=== PATIENT | female | born 1990 | race Caucasian/White ===

== ENCOUNTER 2023-03-26 18:23 | Emergency (ER) | payer OTHER, SELFPAY ==
[2023-03-26 18:45] VITALS: BP 149/79; PULSE 64; RESP 18; TEMP 36.7; O2SAT 100; BMI 33.5
--- NOTE | 2023-03-26 18:46 | ED_ITS ---
HPI - General Adult General Chief complaint: Skin/Abscess/Foreign Body Stated complaint: rash in private area Time Seen by Provider: 03/26/23 23:29 Source: patient, RN notes reviewed, old records reviewed and air pollution compliance inspector Mode of arrival: ambulatory Limitations: language barrier History of Present Illness HPI narrative: 32-year-old female presents for evaluation of a rash in her vaginal and rectal area Patient reports the rash 1st started 3 days ago for She has not looked at the rash but feels a very burning pain and ?a bunch of bumps. Denies any history of genital herpes Denies any fevers, chills No other complaints or concerns at this time Related Data Previous Rx's Medication Instructions Recorded lidocaine 5 % topical cream 1 appl topical TID PRN pain #15 03/27/23 grams prednisone 20 mg tablet 40 mg PO DAILY #10 tabs 03/27/23 valacyclovir 1 gram tablet 1,000 mg PO TID #21 tabs 03/27/23 (Valtrex) Allergies Allergy/AdvReac Type Severity Reaction Status Date / Time aspirin [ASA] AdvReac Rash Verified 03/26/23 18:48 Review of Systems Integumentary/Breasts: Skin/Breast: Reports rash PMFSH Social History Social History Advance Directives: No Advance Directives Information Provided: Yes Physical Exam ED Vital Signs: Vital Signs - 24 hr 03/26/23 18:45 Temperature 98.1 F Pulse Rate 64 Respiratory Rate 18 Blood Pressure 149/79 H Pulse Oximetry 100 Oxygen Delivery Method Room Air BMI result Body Mass Index 33.5 Const General: healthy appearing, comfortable, no acute distress, alert and awake Nutritional Appearance: well nourished Orientation/consciousness: patient oriented x3 Resp Effort & Inspection: normal respiratory effort, no audible wheezes and not labored Skin Other: Patient has a vesicular rash that starts in the perivaginal region extends to the perineum towards the inferior aspect of the rectum. No significant areas of beefy red erythema, edema, fluctuance General skin exam: elasticity normal Neuro General: patient oriented x3 Cranial nerves: Yes Bilaterally intact EOM present Cognition (Neuro): normal cognition Extrem Other: Moving all extremities well without any obvious deformities Course Course Course Narrative: RME performed by Hodan Trent PA-C. Patient is a 32 year old assigned female at presenting to the emergency department with rectal irritation. Patient placed back in the waiting room pending room availability. Medical Decision Making Medical Decision Making MDM Narrative: Patient's rash is clinically most consistent with a herpes simplex virus. A swab was sent to evaluate for herpes simplex. Will treat with valacyclovir, prednisone and topical lidocaine. The rash is not consistent with cellulitis versus perirectal abscess. Differential Diagnosis Differential Diagnoses: The differential diagnosis associated with the presentation includes Acute rash Vesicular rash Herpes simplex virus Dermatitis Cellulitis Discharge Plan Discharge Clinical Impression: Vesicular rash Patient Disposition: Home, Self-Care Instructions: Genital Herpes Simplex (ED) Additional Instructions: Your rash is most consistent with herpes simplex virus. Take the valacyclovir 3 times a day for 1 week Take prednisone 40 mg daily for the next 5 days You may try using the lidocaine cream as needed. This will likely cause increased burning for a short while before improving her pain Prescriptions: New valacyclovir [Valtrex] 1 gram tablet 1,000 mg PO TID Qty: 21 0RF lidocaine 5 % cream 1 appl topical TID PRN (Reason: pain) Qty: 15 0RF prednisone 20 mg tablet 40 mg PO DAILY Qty: 10 0RF
--- OUTSIDE RECORDS SUMMARY | 2023-03-27 00:09 | XMS_ITS | Continuity of Care Document ---
Author Name Unknown Organization [facility] ter Address [address] [place] [address]- Care Team Providers Care Corporate Accounting Manager Name Role Phone Christopher RUIZ, Kathleen Primary Care Physician [phone] [facility] Date(s): 12/06/20 - 12/06/[address] [address] Discharge Disposition: A-D/C Home Attending Physician: Sabine Deutsch MD Admitting Physician: Sabine Deutsch MD Referring Physician: Sabine Deutsch MD Allergies, Adverse Reactions, Alerts Substance Reaction Severity Status aspirin hives Persistent Moderate Active Immunizations Given and Recorded Vaccine Date Status Refusal Reason influenza virus vaccine, inactivated 10/11/20 Give n influenza virus vaccine, inactivated 12/04/19 Give n influenza virus vaccine, inactivated 12/30/17 Give n tetanus/diphtheria/pertussis, acel(Tdap) 12/30/17 Given Medications bacitracin topical 500 u/gm ointment 1 application, Topically, 2 times a day, # 15 Gm, 0 Refills, Acute 12/15/20 8:13:00 EST, 12/06/20 8:12:00 EST, [facility] Partial fill upon patient request if the prescription is for a schedule II opioid drug., 1 application... Start Date: 12/06/20 Stop Date: 12/15/20 Status: Ordered FLUoxetine 20 mg oral capsule Refills 0, Maintenance, 10/11/20 11:21:00 EST, Partial fill upon patient request if the prescription is for a schedule II opioid drug. Start Date: 10/11/20 Status: Ordered Problem List Condition Effective Dates Status Health Status Inform ant Anxiety(Confirmed) Active Depression(Confirmed) Active Vital Signs Most recent to oldest [Reference Range]: 1 2 3 Height 162.56 cm (12/06/20 7:08 AM) 162.56 cm (11/25/20 5:25 PM) Weight 96 kg (12/06/20 7:08 AM) 97.27 kg (11/25/20 5:25 PM) Oxygen Saturation [94-100 %] 99 % (12/06/20 8:30 AM) 98 % (12/06/20 8:15 AM) 92 % *L* (12/06/20 8:00 AM) Pulse Rate [55-90 bpm] 55 bpm (12/06/20 7:08 AM) Body Mass Index [18.5-24.99] 36.33 *>HHI* (12/06/20 7:08 AM) 36.81 *>HHI* (11/25/20 5:25 PM) Blood Pressure [90-138/55-84 mm Hg] 130/92mm Hg (12/06/20 8:30 AM) 118/85mm Hg (12/06/20 8:15 AM) 106/47mm Hg (12/06/20 8:00 AM) Respiratory Rate [16-30 br/min] 14 br/min *L* (12/06/20 8:30 AM) 19 br/min (12/06/20 8:15 AM) 23 br/min (12/06/20 8:00 AM) Temperature [96.8-100.4 DegF] 97.3 DegF (12/06/20 9:00 AM) 96.9 DegF (12/06/20 8:00 AM) 98.0 DegF (12/06/20 7:08 AM) Mode of Delivery (Oxygen) Room air (12/06/20 8:30 AM) Room air (12/06/20 8:15 AM) Room air (12/06/20 8:00 AM) Blood pressure sites Arm, right (12/06/20 8:00 AM) Arm, right (12/06/20 7:08 AM) Temperature Route Temporal (12/06/20 9:00 AM) Temporal (12/06/20 8:00 AM) Temporal (12/06/20 7:08 AM) Dry Weight 96 kg (12/06/20 7:08 AM) 97.27 kg (11/25/20 5:25 PM) Weight Obtained Via Standing scale (12/06/20 7:08 AM) Patient/family stated (11/25/20 5:25 PM) Dry Weight Obtained Via Standing scale (12/06/20 7:08 AM) Patient/family stated (11/25/20 5:25 PM) Social History Social History Type Response Smoking Status Never (less than 100 in lifetime) entered on: 10/11/20 Sex
--- OUTSIDE RECORDS SUMMARY | 2023-03-27 00:09 | XMS_ITS | Continuity of Care Document ---
Author Name Unknown Organization [facility] Address [address] [place] [address] [address] [place] [address]- Care Team Providers Care Kapok And Cotton Machine Operator Name Role Phone Christopher RUIZ, Kathleen Primary Care Physician [phone] Encounter [facility] Date(s): 12/16/20 - 01/15/21 [facility] [address] [place] [address]- Attending Physician: Hailey Brewer Admitting Physician: AdmtrHailey Referring Physician: Admtr, Ar8 Allergies, Adverse Reactions, Alerts Substance Reaction Severity Status aspirin hives Persistent Moderate Active Immunizations Given and Recorded Vaccine Date Status Refusal Reason influenza virus vaccine, inactivated 10/11/20 Give n influenza virus vaccine, inactivated 12/04/19 Give n influenza virus vaccine, inactivated 12/30/17 Give n tetanus/diphtheria/pertussis, acel(Tdap) 12/30/17 Given Medications FLUoxetine 20 mg oral capsule Refills 0, Maintenance, 10/11/20 11:21:00 EST, Partial fill upon patient request if the prescription is for a schedule II opioid drug. Start Date: 10/11/20 Status: Ordered Problem List Condition Effective Dates Status Health Status Inform ant Anxiety(Confirmed) Active Depression(Confirmed) Active Social History Social History Type Response Smoking Status Never (less than 100 in lifetime) entered on: 10/11/20 Sex
--- OUTSIDE RECORDS SUMMARY | 2023-03-27 00:09 | XMS_ITS | Continuity of Care Document ---
Author Name Unknown Organization [facility] Address [address] [place] [address]- Care Team Providers Care Website Project Manager Name Role Phone Jeff RUIZ, Roseann Park Primary Care Physician Encounter [facility] Date(s): 08/17/22 - 10/10/[address] [address]- Attending Physician: Not on Staff, Attending MD Referring Physician: Fallon Adrian MD Allergies, Adverse Reactions, Alerts Substance Reaction Severity Status aspirin hives Persistent Moderate Active Immunizations Given and Recorded Vaccine Date Status Refusal Reason SARS-CoV-2 (COVID-19) mRNA BNT-162b2 vac 10/04/21 Recorded SARS-CoV-2 (COVID-19) mRNA BNT-162b2 vac 02/15/21 Recorded SARS-CoV-2 (COVID-19) mRNA BNT-162b2 vac 01/23/21 Recorded influenza virus vaccine, inactivated 10/11/20 Give n influenza virus vaccine, inactivated 12/04/19 Give n influenza virus vaccine, inactivated 12/30/17 Give n tetanus/diphtheria/pertussis, acel(Tdap) 12/30/17 Given Medications ferrous sulfate 160 mg oral tablet, extended release 1 tablet = 160 mg, By Mouth, Every other day, # 30 tablet, 0 Refills, Maintenance, 08/07/22 11:09:00 EDT, ER Tablet, [id number], Partial fill upon patient request if the prescription is for aschedule II opioid drug., 163, cm, 08/07/22 7:44:00... Start Date: 08/07/22 Status: Ordered Liletta 52 mg intrauterine device See Instructions, 1 device to be delivered to [address] [place] [address]. Tel [phone]., # 1 each, 0 Refills, Maintenance, 08/24/22 12:20:00 EDT, [facility], Partial fill upon patient request if the prescription is for a... Start Date: 08/24/22 Status: Ordered medroxyPROGESTERone 10 mg oral tablet 10 mg, 1, tablet, By Mouth, Daily, # 30 tablet, Refills 0, Tot. Refills 0, Maintenance, 08/07/22 11:01:00 EDT, Route to Pharmacy Electronically, [facility]/pharmacy #[id number], Partial fill upon patient request if the prescription is for a schedule II opioid drug... Start Date: 08/07/22 Status: Ordered Provera 10 mg oral tablet 10 mg, 1, tablet, By Mouth, 3 times a day, # 60 tablet, Refills 0, Tot. Refills 0, Maintenance, 08/24/22 12:17:00 EDT, Route to Pharmacy Electronically, [facility]/pharmacy #[id number], Partial fill upon patient request if the prescription is for a schedule II opi... Start Date: 08/24/22 Stop Date: 09/13/22 Status: Ordered Problem List Condition Confirmation Course Effective Dates Status Health St atus Informant Anxiety Confirmed Active Depression Confirmed Active Obese class I Confirmed Active Social History Social History Type Response Smoking Status Never (less than 100 in lifetime) entered on: 10/11/20 Sex Patient Care team information Care Team Personnel Name: Roseann Aguilar MD Position: S Resident Member Role: PCP Address: Address: [address] [place] [address]- Care Team Related Persons Name: GILBERT CASTELLANO Address: home [address] [place] [address] Name: FABRICIO GRACIA Address: home [address] [place] [address]
--- OUTSIDE RECORDS SUMMARY | 2023-03-27 00:09 | XMS_ITS | Continuity of Care Document ---
Author Name Unknown Organization [facility] Address [address] [place] [address]- Care Team Providers Care Bottom Presser Name Role Phone Christopher RUIZ, Kathleen Primary Care Physician [phone] Encounter [facility] ACCT R [id number] Date(s): 10/11/20 - 11/10/[address] [address]- Attending Physician: Hailey Brewer Admitting Physician: AdmtrHailey [...]
--- OUTSIDE RECORDS SUMMARY | 2023-03-27 00:09 | XMS_ITS | Continuity of Care Document ---
Author Name Unknown Organization [facility] Address Unknown Care Team Providers Care Air Force Pilot Name Role Phone Jeff RUIZ, Roseann Park Primary Care Physician Encounter [facility] Date(s): 07/03/21 - 08/02/21 [facility] Allergies, Adverse Reactions, Alerts Substance Reaction Severity [...]
--- OUTSIDE RECORDS SUMMARY | 2023-03-27 00:09 | XMS_ITS | Continuity of Care Document ---
Author Name Unknown Organization [facility] Address [address] [place] [address]- Care Team Providers Care Reporting Lead Name Role Phone Jeff RUIZ, Roseann Park Primary Care Physician [place] [facility] Date(s): 08/18/22 - 09/17/[address] [address]- Allergies, Adverse Reactions, Alerts Substance Reaction Severity [...] Maintenance, 08/07/22 11:09:00 EDT, ER Tablet, [id number], Partial fill upon patient request if the prescription is for aschedule II opioid drug., 163, cm, 08/07/22 7:44:00... Start Date: 08/07/22 Status: Ordered Liletta 52 mg intrauterine device See Instructions, 1 device to be delivered to [address] [place] [address]. Tel [phone]., # 1 each, 0 Refills, Maintenance, 08/24/22 12:20:00 EDT, [facility], Partial fill upon patient request if the prescription is for a... Start Date: 08/24/22 Status: Ordered medroxyPROGESTERone 10 mg oral tablet 10 mg, 1, tablet, By Mouth, Daily, # 30 tablet, Refills 0, Tot. Refills 0, Maintenance, 08/07/22 11:01:00 EDT, Route to Pharmacy Electronically, [facility]/pharmacy #[id number], Partial fill upon patient request if the prescription is for a schedule II opioid drug... Start Date: 08/07/22 Status: Ordered Provera 10 mg oral tablet 10 mg, 1, tablet, By Mouth, 3 times a day, # 60 tablet, Refills 0, Tot. Refills 0, Maintenance, 08/24/22 12:17:00 EDT, Route to Pharmacy Electronically, [facility]/pharmacy #[id number], Partial fill upon patient request [...] Team Personnel Name: Roseann Aguilar MD Position: [facility] Resident Member Role: PCP Address: Address: [address] [place] [address]- Care Team Related Persons Name: GILBERT CASTELLANO Address: home [address] [place] [address] Name: FABRICIO GRACIA Address: home [address] [place] [address]
--- OUTSIDE RECORDS SUMMARY | 2023-03-27 00:09 | XMS_ITS | Continuity of Care Document ---
Author Name Unknown Organization [facility] Address [address] [place] [address]- Care Team Providers Care Sales Agent Financial Report Service Name Role Phone Jeff RUIZ, Roseann Park Primary Care Physician [place] [facility] [place] 09/11/22 - 10/25/[address] [address]- Attending Physician: Not on Staff, Attending MD Allergies, Adverse Reactions, Alerts Substance Reaction [...] Maintenance, 08/07/22 11:09:00 EDT, ER Tablet, [id number], Partial fill upon patient request if the prescription is for aschedule II opioid drug., 163, cm, 08/07/22 7:44:00... Start Date: 08/07/22 Status: Ordered Liletta 52 mg intrauterine device See Instructions, 1 device to be delivered to [address] [place] [address]. Tel [phone]., # 1 each, 0 Refills, Maintenance, 08/24/22 12:20:00 EDT, [facility], Partial fill upon patient request if the prescription is for a... Start Date: 08/24/22 Status: Ordered medroxyPROGESTERone 10 mg oral tablet 10 mg, 1, tablet, By Mouth, Daily, # 30 tablet, Refills 0, Tot. Refills 0, Maintenance, 08/07/22 11:01:00 EDT, Route to Pharmacy Electronically, [facility]/pharmacy #[id number], Partial fill upon patient request if the prescription is for a schedule II opioid drug... Start Date: 08/07/22 Status: Ordered Provera 10 mg oral tablet 10 mg, 1, tablet, By Mouth, 3 times a day, # 60 tablet, Refills 0, Tot. Refills 0, Maintenance, 08/24/22 12:17:00 EDT, Route to Pharmacy Electronically, [id number], Partial fill upon patient request if [...] S Resident Member Role: PCP Address: Address: [address] [place] [address]- Care Team Related Persons Name: GILBERT CASTELLANO Address: home [address] [place] [address] Name: FABRICIO GRACIA Address: [address] [place] [address]
--- OUTSIDE RECORDS SUMMARY | 2023-03-27 00:09 | XMS_ITS | Continuity of Care Document ---
Author Name Unknown Organization [facility] Address [address] [place] [address]- Care Team Providers Care Tool And Gauge Inspector Name Role Phone Charissa Gill MD Primary Care Physician Encounter [facility] Date(s): 12/04/19 - 12/14/19 [facility] [address] [place] [address]- [place] Attending Physician: Hailey Brewer Admitting Physician: AdmtrHailey Referring Physician: Admtr, ArAgata Allergies, Adverse Reactions, Alerts Substance Reaction Severity Status aspirin hives Persistent Moderate Active Immunizations Given and Recorded Vaccine Date Status Refusal Reason influenza virus vaccine, inactivated 12/04/19 Give n influenza virus vaccine, inactivated 12/30/17 Give n tetanus/diphtheria/pertussis, acel(Tdap) 12/30/17 Given Medications FLUoxetine 10 mg oral capsule 10 mg, 1, capsule, By Mouth, Daily, # 90 capsule, Refills 3, Tot. Refills 3, Maintenance, 12/04/19 18:17:00 EST, Route to Pharmacy Electronically, [facility]/pharmacy #[id number], 163, cm, 12/04/19 17:59:00 EST, Height Start Date: 12/04/19 Status: Ordered Problem List Condition Effective Dates Status Health Status Inform ant Depression(Confirmed) Active Social History Social History Type Response Smoking Status Never smoker entered on: 10/13/17 Sex
--- OUTSIDE RECORDS SUMMARY | 2023-03-27 00:09 | XMS_ITS | Continuity of Care Document ---
Author Name Unknown Organization [facility] Address [address] [place] [address]- Care Team Providers Care Blending Tank Tender Name Role Phone Jeff RUIZ, Roseann Park Primary Care Physician Encounter [facility] Date(s): 08/06/22 - 09/05/22 [facility] [address] [place], [place] [address] Allergies, Adverse Reactions, Alerts Substance Reaction Severity [...] Maintenance, 08/07/22 11:09:00 EDT, ER Tablet, [id number], Partial fill upon patient request if the prescription is for aschedule II opioid drug., 163, cm, 08/07/22 7:44:00... Start Date: 08/07/22 Status: Ordered Liletta 52 mg intrauterine device See Instructions, 1 device to be delivered to [address] [place] [address]. Tel [phone]., # 1 each, 0 Refills, Maintenance, 08/24/22 12:20:00 EDT, [facility], Partial fill upon patient request if the prescription is for a... Start Date: 08/24/22 Status: Ordered medroxyPROGESTERone 10 mg oral tablet 10 mg, 1, tablet, By Mouth, Daily, # 30 tablet, Refills 0, Tot. Refills 0, Maintenance, 08/07/22 11:01:00 EDT, Route to Pharmacy Electronically, [facility]/pharmacy #[id number], Partial fill upon patient request if the prescription is for a schedule II opioid drug... Start Date: 08/07/22 Status: Ordered Provera 10 mg oral tablet 10 mg, 1, tablet, By Mouth, 3 times a day, # 60 tablet, Refills 0, Tot. Refills 0, Maintenance, 08/24/22 12:17:00 EDT, Route to Pharmacy Electronically, [facility]/pharmacy #[id number], Partial fill upon patient [...] S Resident Member Role: PCP Address: Address: [address] [place] [address]- Care Team Related Persons Name: GILBERT CASTELLANO Address: [address] [place] [address] Name: FABRICIO GRACIA Address: [address] [place] [address]
--- OUTSIDE RECORDS SUMMARY | 2023-03-27 00:09 | XMS_ITS | Continuity of Care Document ---
Author Name Unknown Organization [facility] Address [address] [place] [address]- Care Team Providers Care Project Scheduler Name Role Phone Jeff RUIZ, Roseann Park Primary Care Physician Encounter [facility] Date(s): 08/26/22 - 09/25/[address] [address]- Allergies, Adverse Reactions, Alerts Substance Reaction Severity [...] Maintenance, 08/07/22 11:09:00 EDT, ER Tablet, [id number], Partial fill upon patient request if the prescription is for aschedule II opioid drug., 163, cm, 08/07/22 7:44:00... Start Date: 08/07/22 Status: Ordered Liletta 52 mg intrauterine device See Instructions, 1 device to be delivered to [address] [place] [address]. Tel [phone]., # 1 each, 0 Refills, Maintenance, 08/24/22 12:20:00 EDT, [facility], Partial fill upon patient request if the prescription is for a... Start Date: 08/24/22 Status: Ordered medroxyPROGESTERone 10 mg oral tablet 10 mg, 1, tablet, By Mouth, Daily, # 30 tablet, Refills 0, Tot. Refills 0, Maintenance, 08/07/22 11:01:00 EDT, Route to Pharmacy Electronically, [id number], [...] S Resident Member Role: PCP Address: Address: [address] [place] [address]- Care Team Related Persons Name: GILBERT CASTELLANO Address: home [address] [place] [address] Name: FABRICIO GRACIA Address: home [address] [place] [address]
--- OUTSIDE RECORDS SUMMARY | 2023-03-27 00:09 | XMS_ITS | Continuity of Care Document ---
Author Name Unknown Organization [facility] Address [address] [place] [address]- Care Team Providers Care Longwall Machine Operator Helper Name Role Phone Jeff RUIZ, Roseann Park Primary Care Physician Encounter [facility] ACCT R [id number] Date(s): 09/25/22 - 10/25/[address] [address]- Attending Physician: Admtr, Rosalio8 Admitting Physician: Admtr, Ar8 Referring Physician: Admtr, Ar8 Allergies, Adverse Reactions, [...] Maintenance, 08/07/22 11:09:00 EDT, ER Tablet, [id number], Partial fill upon patient request if the prescription is for aschedule II opioid drug., 163, cm, 08/07/22 7:44:00... Start Date: 08/07/22 Status: Ordered Liletta 52 mg intrauterine device See Instructions, 1 device to be delivered to [address] [place] [address] [facility] [address]. Tel [phone]., # 1 each, 0 Refills, Maintenance, 08/24/22 12:20:00 EDT, [facility], Partial fill upon patient request if the prescription is for a... Start Date: 08/24/22 Status: Ordered medroxyPROGESTERone 10 mg oral tablet 10 mg, 1, tablet, By Mouth, Daily, # 30 tablet, Refills 0, Tot. Refills 0, Maintenance, 08/07/22 11:01:00 EDT, Route to Pharmacy Electronically, [facility]/pharmacy #[id number], Partial fill upon patient request if the prescription is for a schedule II opioid drug... Start Date: 08/07/22 Status: Ordered Provera 10 mg oral tablet 10 mg, 1, tablet, By Mouth, 3 times a day, # 60 tablet, Refills 0, Tot. Refills 0, Maintenance, 08/24/22 12:17:00 EDT, Route to Pharmacy Electronically, [facility]/pharmacy #[id number], Partial fill upon patient request if [...] S Resident Member Role: PCP Address: Address: [address] [place] [address]- Care Team Related Persons Name: GILBERT CASTELLANO Address: home [address] [place] [address] Name: FABRICIO GRACIA Address: home [address] [place] [address]
--- OUTSIDE RECORDS SUMMARY | 2023-03-27 00:09 | XMS_ITS | Continuity of Care Document ---
Author Name Unknown Organization [facility] Address [address] [place] [address]- Care Team Providers Care Interventional Physician Name Role Phone Jeff RUIZ, [place] Primary Care Physician Encounter [facility] [place] [facility] [id number] Date(s): 08/07/22 - 09/20/[address] [address]- Attending Physician: Leidy Vega MD Admitting Physician: Leidy Vega MD Allergies, Adverse Reactions, Alerts Substance Reaction [...] Refills, Maintenance, 08/07/22 11:09:00 EDT, ER Tablet, [facility]/pharmacy #[id number], Partial fill upon patient request if the prescription is for aschedule II opioid drug., 163, cm, 08/07/22 7:44:00... Start Date: 08/07/22 Status: Ordered Liletta 52 mg intrauterine device See Instructions, 1 device to be delivered to [address] [place] [address]. Tel [phone]., # 1 each, 0 Refills, Maintenance, 08/24/22 12:20:00 EDT, [facility], Partial fill upon patient request if the prescription is for a... Start Date: 08/24/22 Status: Ordered medroxyPROGESTERone 10 mg oral tablet 10 mg, 1, tablet, By Mouth, Daily, # 30 tablet, Refills 0, Tot. Refills 0, Maintenance, 08/07/22 11:01:00 EDT, Route to Pharmacy Electronically, [facility]/pharmacy #[id number], Partial fill upon patient request if the prescription is for a schedule II opioid drug... Start Date: 08/07/22 Status: Ordered Provera 10 mg oral tablet 10 mg, 1, tablet, By Mouth, 3 times a day, # 60 tablet, Refills 0, Tot. Refills 0, Maintenance, 08/24/22 12:17:00 EDT, Route to Pharmacy Electronically, [facility]/pharmacy #[id number], Partial fill upon patient request if [...] S Resident Member Role: PCP Address: Address: [address] [place] [address]- Care Team Related Persons Name: GILBERT CASTELLANO Address: home [address] [place] [address] Name: FABRICIO GRACIA Address: home [address] [place] [address]
--- OUTSIDE RECORDS SUMMARY | 2023-03-27 00:09 | XMS_ITS | Continuity of Care Document ---
Author Name Unknown Organization [facility] Address [address] [place] [address] [address] [place] [address]- Care Team Providers Care Registered Nurse First Assistant Name Role Phone Christopher RUIZ, Kathleen Primary Care Physician Encounter [facility] [place] Date(s): 11/12/20 - 11/19/[address] [place], [place] [address] Attending Physician: Sabine Deutsch MD Referring Physician: Kathleen White MD Allergies, Adverse Reactions, Alerts Substance Reaction [...] Most recent to oldest [Reference Range]: 1 Height 162.2 cm (11/12/20 8:52 AM) Weight 97.1 kg (11/12/20 8:52 AM) Pulse Rate [55-90 bpm] 79 bpm (11/12/20 8:52 AM) Body Mass Index [18.5-24.99] 36.91 *>HHI* (11/12/20 8:52 AM) Blood Pressure [90-138/55-84 mm Hg] 121/ 78mm Hg (11/12/20 8:52 AM) Respiratory Rate [16-30 br/min] 16 br/mi n (11/12/20 8:52 AM) Temperature [96.8-100.4 DegF] 97.4 DegF (11/12/20 8:52 AM) Blood pressure sites Arm, right (11/12/20 8:52 AM) Temperature Route Temporal (11/12/20 8:52 AM) Weight Obtained Via Standing scale (11/12/20 8:52 AM) Social History Social History Type Response Smoking Status Never (less than 100 in lifetime) entered on: 10/11/20 Sex
--- OUTSIDE RECORDS SUMMARY | 2023-03-27 00:09 | XMS_ITS | Continuity of Care Document ---
Author Name Unknown Organization [facility] Address [address] [place] [address]- Care Team Providers Care Manager Home Improvement Name Role Phone Jeff RUIZ, Roseann Park Primary Care Physician Encounter [facility] Date(s): 07/24/21 - 08/23/[address] [address]- Allergies, Adverse Reactions, Alerts Substance Reaction Severity [...]
--- OUTSIDE RECORDS SUMMARY | 2023-03-27 00:09 | XMS_ITS | Continuity of Care Document ---
Author Name Unknown Organization [facility] Address [address] [place] [address]- Care Team Providers Care Equipment Planner Name Role Phone Jeff RUIZ, Roseann Park Primary Care Physician Encounter [facility] Date(s): 08/28/22 - 09/27/[address] [address]- Allergies, Adverse Reactions, Alerts Substance Reaction Severity [...] Maintenance, 08/07/22 11:09:00 EDT, ER Tablet, [id number], Partial fill upon patient request if the prescription is for aschedule II opioid drug., 163, cm, 08/07/22 7:44:00... Start Date: 08/07/22 Status: Ordered Liletta 52 mg intrauterine device See Instructions, 1 device to be delivered to [address] [place] [address]. Tel [phone]., # 1 each, 0 Refills, Maintenance, 08/24/22 12:20:00 EDT, [facility], Partial fill upon patient [...] S Resident Member Role: PCP Address: Address: [address] [place] [address]- Care Team Related Persons Name: GILBERT CASTELLANO Address: home [address] [place] [address] Name: FABRICIO GRACIA Address: home [address] [place] [address]
--- OUTSIDE RECORDS SUMMARY | 2023-03-27 00:09 | XMS_ITS | Continuity of Care Document ---
Author Name Unknown Organization [facility] Address [address] [place] [address] [address] [place] [address]- Care Team Providers Care Backup Sawyer Name Role Phone Christopher RUIZ, Kathleen Primary Care Physician [phone] Encounter [facility] [place] Date(s): 12/16/20 - 12/23/20 [facility] [address] [place] [address]- Attending Physician: Sabine Deutsch MD Referring Physician: [...] Most recent to oldest [Reference Range]: 1 Pulse Rate [55-90 bpm] 66 bpm (12/16/20 2:16 PM) Blood Pressure [90-138/55-84 mm Hg] 134/ 81mm Hg (12/16/20 2:16 PM) Temperature [96.8-100.4 DegF] 98.1 DegF (12/16/20 2:16 PM) Blood pressure sites Arm, right (12/16/20 2:16 PM) Temperature Route Temporal (12/16/20 2:16 PM) Social History Social History Type Response Smoking Status Never (less than 100 in lifetime) entered on: 10/11/20 Sex
--- OUTSIDE RECORDS SUMMARY | 2023-03-27 00:09 | XMS_ITS | Continuity of Care Document ---
Author Name Unknown Organization [facility] Address [address] [place] [address]- Care Team Providers Care Portable Power Tool Repairer Name Role Phone Jeff RUIZ, Roseann Park Primary Care Physician Encounter [facility] Date(s): 08/17/22 - 10/01/[address] [address]- Attending Physician: Not on Staff, Attending MD [...] Maintenance, 08/07/22 11:09:00 EDT, ER Tablet, [id number], Partial fill upon patient request if the prescription is for aschedule II opioid drug., 163, cm, 08/07/22 7:44:00... Start Date: 08/07/22 Status: Ordered Liletta 52 mg intrauterine device See Instructions, 1 device to be delivered to [address] [place] [address]. Tel [phone]., # 1 each, 0 Refills, Maintenance, 08/24/22 12:20:00 EDT, [facility], Partial fill upon patient [...] S Resident Member Role: PCP Address: Address: [address] [place] [address]- Care Team Related Persons Name: GILBERT CASTELLANO Address: home [address] [place] [address] Name: FABRICIO GRACIA Address: [address] [place] [address]
--- OUTSIDE RECORDS SUMMARY | 2023-03-27 00:10 | XMS_ITS | Continuity of Care Document ---
Author Name Unknown Organization [facility] Address [address] [place] [address]- Care Team Providers Care Penetration Tester Name Role Phone Jeff RUIZ, Roseann Park Primary Care Physician Encounter [facility] [place] Date(s): 07/31/22 - 08/30/[address] [address]- Allergies, Adverse Reactions, Alerts Substance Reaction Severity [...] Maintenance, 08/07/22 11:09:00 EDT, ER Tablet, [id number], Partial fill upon patient request if the prescription is for aschedule II opioid drug., 163, cm, 08/07/22 7:44:00... Start Date: 08/07/22 Status: Ordered Liletta 52 mg intrauterine device See Instructions, 1 device to be delivered to [address] [place] [address]. Tel [phone]., # 1 each, 0 Refills, Maintenance, 08/24/22 12:20:00 EDT, [facility], Partial fill upon patient request if the prescription is for a... Start Date: 08/24/22 Status: Ordered medroxyPROGESTERone 10 mg oral tablet 10 mg, 1, tablet, By Mouth, Daily, # 30 tablet, Refills 0, Tot. Refills 0, Maintenance, 08/07/22 11:01:00 EDT, Route to Pharmacy Electronically, [facility]pharmacy #[id number], Partial fill upon patient request if the prescription is for a schedule II opioid drug... Start Date: 08/07/22 Status: Ordered Provera 10 mg oral tablet 10 mg, 1, tablet, By Mouth, 3 times a day, # 60 tablet, Refills 0, Tot. Refills 0, Maintenance, 08/24/22 12:17:00 EDT, Route to Pharmacy Electronically, [facility]/pharmacy #[id number], Partial fill upon patient request if the prescription is for a schedule II opi... Start Date: 08/24/22 Stop Date: 09/13/22 Status: Ordered Problem List Condition Confirmation Course Effective Dates Status [facility] Informant Anxiety Confirmed Active Depression Confirmed Active Obese class I Confirmed Active Social History Social History Type Response Smoking Status Never (less than 100 in lifetime) entered on: 10/11/20 Sex Patient Care team information Personnel Name: Roseann Aguilar MD Address: Address: [address] [place] [address]
--- NOTE | 2023-03-27 00:35 | PC.NURSE ---
Reviewed discharge instructions with pt, pt verbalized understanding,
== END 2023-03-27 00:36 | disposition home or self-care (01) ==
PROVIDERS: Physician Assistant; Emergency Provider Emergency Medicine
DX: R23.8 Other skin changes (principal)
CPT/HCPCS: 36415; 87255; 99282; 99283

== ENCOUNTER 2023-08-17 14:41 | Emergency (ER) | payer OTHER, SELFPAY ==
[2023-08-17 15:18] VITALS: BP 140/69; PULSE 75; RESP 20; TEMP 36.9; O2SAT 100; BMI 32.6
--- NOTE | 2023-08-17 15:21 | ED_ITS ---
HPI - Abdominal Pain General Chief Complaint: Abdominal Pain Stated Complaint: Pelvic pain Time Seen by Provider: 08/17/23 20:07 Source: patient Mode of arrival: ambulatory Limitations: language barrier ([place] speaking only) History of Present Illness HPI narrative: 33-year-old female who presents emergency department for evaluation of lower abdominal pain. Patient states that the pain started suddenly on 08/15/2023 (2 days prior to evaluation). She states the pain is been a constant, pressure-like pain which is 6/10. This is a 1st episode of this type of pain. She states she took ibuprofen with only minimal relief of her pain. She states that prior to the onset of the pain she did notice a clear secretion from her vagina. She states that she then developed her menses and had menstrual bleeding. She states the pain is very unusual for her menstrual period. She denied fever, chills, nausea, vomiting, diarrhea. She denied frequency, urgency or dysuria. Patient is a . She had 2 C sections. Related Data Previous Rx's Medication Instructions Recorded lidocaine 5 % topical cream 1 appl topical TID PRN pain #15 03/27/23 grams prednisone 20 mg tablet 40 mg (2 x 20 mg) PO DAILY #10 tabs 03/27/23 valacyclovir 1 gram tablet 1,000 mg PO TID #21 tabs 03/27/23 (Valtrex) acetaminophen 500 mg tablet 1,000 mg (2 x 500 mg) PO Q6H PRN 08/17/23 (Tylenol Extra Strength) fever or pain #20 tabs doxycycline hyclate 100 mg tablet 100 mg PO Q12H 14 days #28 tabs 08/17/23 ibuprofen 400 mg tablet 400 mg PO TID PRN fever or pain 08/17/23 #30 tabs metronidazole 500 mg tablet 500 mg PO BID 14 days #28 tabs 08/17/23 Allergies Allergy/AdvReac Type Severity Reaction Status Date / Time aspirin [ASA] AdvReac Rash Verified 03/26/23 18:48 Review of Systems Review of Systems Yes all other systems are reviewed and are negative [facility] Past Medical History [facility] Narrative: Past medical history: None. Surgical history: Cholecystectomy, x2. Social history: She denies tobacco, alcohol and drug use. Social History Social History Alcohol intake: current Alcohol intake frequency: holidays/special occasions only Smoked in Last 30 Days: No Use of substances other than those prescribed or required for medical reasons: No Advance Directives: No Advance Directives Information Provided: No Physical Exam ED Vital Signs: Vital Signs - 24 hr 08/17/23 15:18 08/17/23 19:46 Temperature 98.4 F Pulse Rate 75 89 Respiratory Rate 20 18 Blood Pressure 140/69 H 135/67 Pulse Oximetry 100 100 Oxygen Delivery Method Room Air Room Air BMI result Body Mass Index 32.6 Vital signs revealed elevated blood pressure of 140/69 Exam: General: Awake, alert in no distress Head: Normocephalic, atraumatic EENT: PERRL, Lids normal, sclera normal, conjunctiva normal, nose normal , ears normal, throat without erythema or exudates Neck: Supple, no adenopathy, no trachea midline or C-spine tenderness Lung: breath sounds symmetric, no wheezing, rales or rhonchi Chest: symmetric movement, nontender Heart: regular rate and rhythm, normal S1, S2 no murmurs or rubs Abdomen: soft, moderate suprapubic tenderness, moderate left lower and right lower quadrant tenderness, nondistended, normal bowel sounds : External vaginal exam: Speculum exam: revealed small amount of blood in the vagina which was swabbed away with 3 large Q-tips. Patient has a clear thick cervical discharge. Bimanual exam: Patient has moderate to severe cervical motion tenderness, she has moderate bilateral adnexal tenderness Back: no vertebral tenderness, no CVAT Extremities: no deformities, moves all extremities symmetrically Skin: no rashes, no lesion, normal color and warmth Neuro: Awake, alert, oriented, normal speech Psych: Pleasant, cooperative Course Course Course Narrative: This is a rapid medical exam. Deferred additional HPI, ROS, PE to primary provider. 33 yo female with no known medical history here with complaints of vaginal bleeding/lower abdominal pain since Wednesday. Will obtain labs, UA, ur preg VSS Medical Decision Making Medical Decision Making MDM Narrative: 33-year-old female who presents emergency department for evaluation of 2 days of lower abdominal exam, pain came on suddenly, pain is constant, pressure-like sensation which is 6/10 at its worst. Patient did notice a vaginal discharge and then developed her menses. Patient's abdominal exam did reveal suprapubic and lower abdominal tenderness. Pelvic exam did reveal a clear cervical discharge, blood in the vagina consistent with menses and significant cervical motion tenderness, uterine and bilateral adnexal tenderness. Patient's laboratory evaluation was unremarkable. Patient's presentation is consistent with pelvic inflammatory disease. Patient was treated with ceftriaxone mixed with lidocaine 500 mg IM, doxycycline 100 mg q.12 hours times 14 days and metronidazole 500 mg q.12 hours times 14 days. She was advised to take Tylenol and ibuprofen for pain. She will need to follow-up with her workers' compensation claims supervisor for re-evaluation in 10-14 days. I did discuss the possibility of sexually transmitted diseases with the patient, the importance of follow-up and the importance of avoiding sex until she is re-evaluated by her workers' compensation claims supervisor. Differential Diagnosis Differential Diagnoses: The differential diagnosis associated with the presentation includes Differential diagnosis includes was not limited to menstrual cramps, pelvic inflammatory disease, cervicitis, appendicitis, pancreatitis, STD Admission/Observation Consideration of admission/observation: Escalation of care including admission/observation considered Lab Data MDM Lab Attestation statement: I reviewed the patient's lab results. My interpretation patient's laboratory evaluation as follows: CBC was normal. CMP was normal. Lipase was normal. Urinalysis positive for blood, leukocyte esterase. Urinary) was negative. 08/17/23 15:37 08/17/23 15:37 Labs: Lab Results 08/17/23 08/17/23 Range/Units 15:37 19:58 WBC 11.5 H (4.8-10.8) X10*3/uL RBC 3.74 L (4.20-5.50) X10*6/uL Hgb 11.1 L (12.0-16.0) g/dl Hct 33.3 L (37.0-47.0) % MCV 89.0 (80.0-98.0) fL MCH 29.7 (27.0-33.0) pg MCHC 33.3 (31.0-35.0) g/dl RDW 16.7 H (11.0-16.0) % Plt Count 300 (160-400) X10*3/uL MPV 9.2 L (9.4-12.3) fL Immature Gran % (Auto) 0.2 (0.0-0.4) % Neut % (Auto) 71.0 (45-73) % Lymph % (Auto) 21.6 (20-40) % [place] % (Auto) 5.9 (2-11) % Eos % (Auto) 1.0 (0-4) % Baso % (Auto) 0.3 (0-2) % Lymph # (Auto) 2.5 (1.2-4.9) X10*3/uL [place] # (Auto) 0.7 (0.1-1.2) X10*3/uL Eos # (Auto) 0.1 (0.0-0.4) X10*3/uL Baso # (Auto) 0.0 (0.0-0.2) X10*3/uL Abs Immat Gran (auto) 0.02 (0.00-0.03) X10*3/uL Absolute Neuts (auto) 8.2 (2.0-8.3) x10*3/uL Absolute Nucleated RBC 0.000 (0.0-0.012) X10*3/uL Nucleated RBC % (auto) 0.0 (0.0-0.2) /100WBC Sodium 141 (135-145) mmol/L Potassium 3.3 (3.3-5.1) mmol/L Chloride 107 (96-108) mmol/L Carbon Dioxide 26 (22-29) mmol/L Anion Gap 11 L (12-20) BUN 5 L (9-16) mg/dL Creatinine 0.57 (0.5-1.4) mg/dL Estim Creat Clear Calc 151.9 Estimated GFR > 60 Random Glucose 110 (60-115) mg/dL Calcium 9.3 (8.4-10.2) mg/dL Total Bilirubin 0.7 (0.0-1.0) mg/dL Direct Bilirubin 0.3 (0.0-0.5) mg/dL AST 19 (5-31) U/L ALT 15 (0-31) U/L Alkaline Phosphatase 51 (39-117) U/L Total Protein 6.8 (6.5-8.0) g/dL Albumin 3.9 (3.5-5.0) g/dL Lipase 45 (8-78) U/L Urine Color Yellow Urine Appearance Cloudy Urine pH 8.0 (5.0-9.0) Ur Specific [place] 1.020 (1.005-1.025) Urine Protein Negative (Neg-Trace) mg/dL Urine Glucose (UA) Negative (Negative) mg/dL Urine Ketones Trace (Negative) mg/dL Urine Blood Moderate (2+) H (Negative) Urine Nitrite Negative (Negative) Ur Leukocyte Esterase Small (1+) H (Negative) Urine Test NEGATIVE (NEGATIVE) Discharge Plan Discharge Clinical Impression: Acute pelvic inflammatory disease Patient Disposition: Home, Self-Care Instructions: Pelvic Inflammatory Disease (ED) Additional Instructions: Pelvic inflammatory disease instructions: Your presentation and physical findings are consistent with pelvic inflammatory disease (PID). Approximately 30% of the time, pelvic inflammatory disease is caused by sexually transmitted diseases such as Trichomonas, gonorrhea or chlamydia. Approximately 70% of the time, pelvic inflammatory disease is caused by abnormal bacteria (anaerobic bacteria) in your vagina that can cause an infection Medications You received ceftriaxone 500 mg intramuscularly here in the emergency department Take doxycycline 100 mg, 1 pill twice a day for 14 days. Take metronidazole 500 mg, 1 pill twice a day for 14 days. These 3 antibiotics treat sexually transmitted diseases such as gonorrhea, chlamydia and Trichomonas as well as anaerobic bacteria that can cause pelvic inflammatory disease. Take ibuprofen 400 mg pills, 1 pills every 6 hours as needed for pain. Take Tylenol (acetaminophen) 500 mg pills, 2 pills every 6 hours as needed for pain. Follow-Up Follow-up with your gynecology in 10-14 days. Pending laboratory tests: The doctor that follows up will need to review the following results with you: Bacterial vaginosis testing Gonorrhea and chlamydia (cervical swab) Trichomonas testing You can also check these results on the patient portal. Do not have sexual intercourse until you are re-evaluated by your gynecology and your made aware of the above pending tests. If any of the STD tests are positive then your sexual partner will need to be treated as well. Return precautions: Please return to the emergency department if your symptoms get worse if your pain does not go away in 24-48 hours or if you develop any symptoms that are concerning to you. Prescriptions: New metronidazole 500 mg tablet 500 mg PO BID 14 Days Qty: 28 0RF acetaminophen [Tylenol Extra Strength] 500 mg tablet 1,000 mg PO Q6H PRN (Reason: fever or pain) Qty: 20 0RF ibuprofen 400 mg tablet 400 mg PO TID PRN (Reason: fever or pain) Qty: 30 0RF doxycycline hyclate 100 mg tablet 100 mg PO Q12H 14 Days Qty: 28 0RF No Action valacyclovir [Valtrex] 1 gram tablet 1,000 mg PO TID Qty: 21 0RF lidocaine 5 % cream 1 appl topical TID PRN (Reason: pain) Qty: 15 0RF prednisone 20 mg tablet 40 mg PO DAILY Qty: 10 0RF Print Language: [place]
[2023-08-17 15:43] LABS: MANUAL DIFF FLAG NO
[2023-08-17 15:47] LABS: Basophils Percent Auto 0.3 % (0-2); Eosinophils Absolute Auto 0.1 X10*3/uL (0.0-0.4); Hematocrit 33.3 % (37.0-47.0); Hemoglobin 11.1 g/dl (12.0-16.0); Imm Gran Abs Auto 0.02 X10*3/uL (0.00-0.03); Imm Gran Pct Auto 0.2 % (0.0-0.4); Lymphocytes Absolute Auto 2.5 X10*3/uL (1.2-4.9); Lymphocytes Percent Auto 21.6 % (20-40); Mean Corpuscular HGB Conc 33.3 g/dl (31.0-35.0); Mean Corpuscular Hemoglobin 29.7 pg (27.0-33.0); Mean Platelet Volume 9.2 fL (9.4-12.3); Monocytes Absolute Auto 0.7 X10*3/uL (0.1-1.2); Monocytes Percent Auto 5.9 % (2-11); Neutrophils Absolute Auto 8.2 x10*3/uL (2.0-8.3); Platelet Count 300 X10*3/uL (160-400); Red Blood Count 3.74 X10*6/uL (4.20-5.50); Red Cell Distribution Width 16.7 % (11.0-16.0); White Blood Count 11.5 X10*3/uL (4.8-10.8)
[2023-08-17 16:03] LABS: Alanine Aminotransferase 15 U/L (0-31); Albumin Level 3.9 g/dL (3.5-5.0); Alkaline Phosphatase 51 U/L (39-117); Anion Gap 11 (12-20); Aspartate Amino Transferase 19 U/L (5-31); Bilirubin Direct 0.3 mg/dL (0.0-0.5); Bilirubin Total 0.7 mg/dL (0.0-1.0); Blood Urea Nitrogen 5 mg/dL (9-16); Calcium 9.3 mg/dL (8.4-10.2); Carbon Dioxide 26 mmol/L (22-29); Chloride 107 mmol/L (96-108); Creatinine Clr Calc Pharmacy 151.9; Estimated Glomerular Filt Rate > 60; Glucose Random 110 mg/dL (60-115); Lipase 45 U/L (8-78); Potassium 3.3 mmol/L (3.3-5.1); Sodium 141 mmol/L (135-145); Total Protein 6.8 g/dL (6.5-8.0)
[2023-08-17 19:46] VITALS: BP 135/67; PULSE 89; RESP 18; O2SAT 100
[2023-08-17 20:08] LABS: Appearance Urine Cloudy; Color Urine Yellow; Glucose Urine UA Negative (Negative); Leukocyte Esterase Urine Small (1+) (Negative); Nitrite Urine Negative (Negative); UMIC TRIGGER UACC YES; Urine Blood Moderate (2+) (Negative); Urine Ketones Trace mg/dL (Negative); Urine Protein Negative (Neg-Trace)
--- NOTE | 2023-08-17 20:08 | MHC.EDTECH ---
Patient changed over
[2023-08-17 20:11] LABS: UPreg QC Valid YES; Urine Pregnancy NEGATIVE (NEGATIVE)
[2023-08-17 21:17] LABS: Bacteria Urine None Seen (None Seen); Hyaline Casts Urine 0-2 /LPF (0-2); RBC Urine >20 /HPF (0-2); Squamous Epithelial Cell Urine 0-2 /HPF (0-2); UACC Culture Trigger YES
[2023-08-17] MEDS: Ibuprofen 400 MG TABLET PO (21:38)
[2023-08-17] MEDS: Acetaminophen 325 MG TABLET 975 MG PO (21:38)
[2023-08-17 21:42] VITALS: BP 130/80; PULSE 61; RESP 12; TEMP 36.9
[2023-08-17] MEDS: cefTRIAXone sodium 500 MG, Lidocaine HCl 1 % MPF 1 ML IM (21:52)
[2023-08-18 11:24] LABS: CT PCR NOT DETECTED (Not Detect.); NG PCR NOT DETECTED (Not Detect.)
[2023-08-18 13:41] LABS: BV Int Neg Control Negative (Negative); BV Int Pos Control Positive (Positive)
== END 2023-08-17 22:01 | disposition home or self-care (01) ==
PROVIDERS: Nurse Practitioner Family; Emergency Provider Emergency Medicine Emergency Medical Services
DX: N73.0 Acute parametritis and pelvic cellulitis (principal); R10.2 Pelvic and perineal pain
CPT/HCPCS: 0353U; 36415; 80048; 80076; 81001; 81025; 83690; 85025; 87086; 87147; 87480; 87510; 87660; 96372; 99284; J0696

== ENCOUNTER 2023-12-15 16:37 | Emergency (ER) | payer OTHER, SELFPAY ==
--- NOTE | 2023-12-15 16:45 | ED_ITS ---
HPI - General Adult General Chief complaint: General Medical Stated complaint: muscle spasms on left side Time Seen by Provider: 12/15/23 19:28 Source: patient and family () Mode of arrival: ambulatory Limitations: language barrier (Indonesian speaking only, sales communications manager used) History of Present Illness HPI narrative: 33-year-old female with no significant past medical history presents emergency department for evaluation of left-sided neck pain and left chest pain. Patient states that she has had left-sided neck pain for approximately 3-4 days. She does not recall any injury. She describes the pain is a pressure/pulling like sensation which is worse with movement of her head. The pain does radiate to her right shoulder into her right chest. She has been taking ibuprofen intermittently with some relief for pain. She denies numbness or weakness. She denies fever, chills, sore throat, cough. Related Data Previous Rx's Medication Instructions Recorded lidocaine 5 % topical cream 1 appl topical TID PRN pain #15 03/27/23 grams prednisone 20 mg tablet 40 mg (2 x 20 mg) PO DAILY #10 tabs 03/27/23 valacyclovir 1 gram tablet 1,000 mg PO TID #21 tabs 03/27/23 (Valtrex) acetaminophen 500 mg tablet 1,000 mg (2 x 500 mg) PO Q6H PRN 08/17/23 (Tylenol Extra Strength) fever or pain #20 tabs doxycycline hyclate 100 mg tablet 100 mg PO Q12H 14 days #28 tabs 08/17/23 ibuprofen 400 mg tablet 400 mg PO TID PRN fever or pain 08/17/23 #30 tabs metronidazole 500 mg tablet 500 mg PO BID 14 days #28 tabs 08/17/23 cyclobenzaprine 10 mg tablet 10 mg PO TID PRN pain, muscle 12/15/23 spasm #15 tabs Allergies Allergy/AdvReac Type Severity Reaction Status Date / Time aspirin [ASA] AdvReac Rash Verified 12/15/23 16:47 Review of Systems Review of Systems: Yes all other systems are reviewed and are negative [facility] Past Medical History [facility] Narrative: Social history: She denies tobacco, alcohol and drug use Social History Social History Alcohol intake: current Alcohol intake frequency: holidays/special occasions only Advance Directives: No Advance Directives Information Provided: No Physical Exam ED Vital Signs: Vital Signs - 24 hr 12/15/23 16:47 Temperature 98.5 F Pulse Rate 78 Respiratory Rate 16 Blood Pressure 150/84 H Pulse Oximetry 100 Oxygen Delivery Method Room Air BMI result Body Mass Index 33.3 Vital signs were normal except for an elevated blood pressure of 150/84-this is most likely secondary to her pain Exam General: Awake, alert in no distress Head: Normocephalic, atraumatic EENT: PERRL, Lids normal, sclera normal, conjunctiva normal, nose normal , ears normal, throat without erythema or exudates Neck: Supple, patient has tenderness palpation of her LEs trapezius muscle with spasm this muscle, she has increased pain with flexion extension and leftward rotation of her head and neck. No erythema or increased warmth over. Neuro: Awake, alert, oriented, normal speech, cranial nerves intact, moves all extremities symmetrically, strength in her upper and lower extremities were normal Psych: Pleasant, cooperative Course Course Course Narrative: RME: 33 year-old Indonesian speaking F w/no sig PMHx presenting to the ED c/o left neck muscle spasms radiating to L shoulder/chest/LUE x3 days. admits woke up with the pain, denies known injury/fall/heavy lifting. denies CP/SOB EKG ordered Full HPI, ROS and PE to be performed by primary ED provider. Medical Decision Making Medical Decision Making [facility] Narrative: 33-year-old female with no significant past medical history presents emergency department for evaluation of 3-4 days of left-sided neck pain with pain radiating to her left shoulder and left chest. Examination is consistent with musculoskeletal sprain with radiculopathy but no weakness of her upper extremity. Patient had a 12 EKG which was unremarkable pain. Patient was advised to take Tylenol and ibuprofen for pain and she was also prescribed Flexeril 10 mg 3 times a day as needed for spasm. She was advised to use ice and heat 4 times a day and given printed and verbal instructions and discharged home Differential diagnosis: Neck sprain, neck strain, disc disease, radiculopathy Admission/Observation Consideration of admission/observation: Escalation of care including admission/observation considered Independent Interpretation I performed an independent interpretation of an: EKG Interpretation: My independent interpretation the patient's 12 EKG done at 18:32 hours is as follows: Sinus bradycardia with a rate of 57 normal [place] interval, QRS duration QTC interval, no ST segment elevation, no ST segment depression, inverted T- waves in V1 and V2, except for the bradycardia, this is a normal EKG Independent Historian Clinical information obtained from an independent historian. History obtained from or confirmed by: Spouse Prescription Management I considered prescription management with: Other (Anti spasmodic- cyclobenzaprine) Discharge Plan Discharge Clinical Impression: Strain of left trapezius muscle Qualifiers: Encounter type: initial encounter Qualified Code(s): S46.812A - Strain of other muscles, fascia and tendons at shoulder and upper arm level, left arm, initial encounter Patient Disposition: Home, Self-Care Instructions: Cervical Sprain (ED) Additional Instructions: Your EKG was normal Your exam is consistent with sprain of your left trapezius (neck) muscle Apply an ice pack to the left side of your neck for 15 minutes 4 times a day. After you apply the ice pack that your skin warm up a little bit then apply a heating pad on low for 15 minutes, also do this 4 times a day. Sometimes ice followed by heat is better then either ice or heat alone at making your pain better. Take ibuprofen 200 mg pills, 2 pills every 6 hours as needed for pain or fever. Take Tylenol (acetaminophen) 500 mg pills, 2 pills every 6 hours as needed for pain or fever. Take Flexeril (cyclobenzaprine) 10 mg pills, 1 pill every 6-8 hours as needed for pain or spasm. ?This medication will make you sleepy. ?Do not drive or work while taking this medication. Follow-up with your doctor in 2 days. Please return to the emergency department if your symptoms get worse or if you develop any symptoms that are concerning to you. Prescriptions: New cyclobenzaprine 10 mg tablet 10 mg PO TID PRN (Reason: pain, muscle spasm) Qty: 15 0RF No Action metronidazole 500 mg tablet 500 mg PO BID 14 Days Qty: 28 0RF acetaminophen [Tylenol Extra Strength] 500 mg tablet 1,000 mg PO Q6H PRN (Reason: fever or pain) Qty: 20 0RF ibuprofen 400 mg tablet 400 mg PO TID PRN (Reason: fever or pain) Qty: 30 0RF doxycycline hyclate 100 mg tablet 100 mg PO Q12H 14 Days Qty: 28 0RF valacyclovir [Valtrex] 1 gram tablet 1,000 mg PO TID Qty: 21 0RF lidocaine 5 % cream 1 appl topical TID PRN (Reason: pain) Qty: 15 0RF prednisone 20 mg tablet 40 mg PO DAILY Qty: 10 0RF
[2023-12-15 16:47] VITALS: BP 150/84; PULSE 78; RESP 16; TEMP 36.9; O2SAT 100; BMI 33.3
--- NOTE | 2023-12-15 16:48 | ECG_ITS ---
Test Reason : mussle spasam in chest Blood Pressure : / mmHG Vent. Rate : 057 BPM Atrial Rate : 057 BPM P-R Int : 136 ms QRS Dur : 086 ms QT Int : 406 ms P-R-T Axes : 054 063 049 degrees QTc Int : 395 ms Sinus bradycardia with sinus arrhythmia Otherwise normal ECG No previous ECGs available Referred By: Hannah Baeza Electronically Signed By:DIMA EPPS MD
--- NOTE | 2023-12-15 17:30 | MHC.EDTECH ---
PATIENT BLOOD DRAWN AND SENT TO LAB ,PATIENT NOT ABLE TO GIVE URINE SAMPLE AT THIS TIME .
--- NOTE | 2023-12-15 18:36 | MHC.EDTECH ---
PATIENT EKG TAKEN AND WAS READ BY PROVIDER .
--- NOTE | 2023-12-15 19:54 | PC.NURSE ---
application developer at bedside. this rn assumed care of pt. pt reporting onset of left shoulder pain for 3 days after lifting a jug of water. pt reports she has been taking ibuprofen without relief. pt cms in tact. pt neuro assessment in tact. provider at bedside to discuss pt care.
[2023-12-15] MEDS: Cyclobenzaprine HCl 10 MG TABLET PO (20:00)
[2023-12-15] MEDS: Ibuprofen 400 MG TABLET PO (20:00)
[2023-12-15 20:05] VITALS: BP 136/87; PULSE 50; RESP 16; TEMP 36.4; O2SAT 97
== END 2023-12-15 20:06 | disposition home or self-care (01) ==
PROVIDERS: Emergency Provider Emergency Medicine Emergency Medical Services
DX: S46.812A Strain of other muscles, fascia and tendons at shoulder and upper arm level, left arm, initial encounter (principal); X58.XXXA Exposure to other specified factors, initial encounter; M62.838 Other muscle spasm; Y93.9 Activity, unspecified; Y92.9 Unspecified place or not applicable; Y99.9 Unspecified external cause status
CPT/HCPCS: 93005; 99283; 99285

== ENCOUNTER → 2023-12-15 16:48 | Outpatient (BNV) | payer OTHER, SELFPAY | PROVIDERS: Emergency Provider Emergency Medicine Emergency Medical Services; Visit Provider Internal Medicine Cardiovascular Disease | DX: R00.1 Bradycardia, unspecified (principal) | CPT/HCPCS: 93010 ==

== ENCOUNTER 2024-02-01 11:35 | Emergency (ER) | payer OTHER, SELFPAY ==
--- NOTE | ~2024-02-01 | XR_ITS ---
EXAMINATION: XR ABDOMEN KUB CLINICAL INDICATION: Abdominal pain. COMPARISON: None available. TECHNIQUE: AP view of the abdomen. FINDINGS: There are cholecystectomy clips. The bowel gas pattern is nonobstructive. There is a moderate volume of stool throughout the right half of the colon. No acute osseous abnormality. XR/XR KUB IMPRESSION: Nonobstructive bowel gas pattern with a moderate volume of stool within the right hemicolon.
[2024-02-01 11:46] VITALS: BP 124/69; PULSE 84; RESP 16; TEMP 36.5; O2SAT 100; BMI 32.4
--- NOTE | 2024-02-01 11:46 | ED_ITS ---
HPI - Abdominal Pain General Chief Complaint: Abdominal Pain Stated Complaint: Lower abd pain Time Seen by Provider: 02/01/24 19:38 Source: patient Mode of arrival: ambulatory Limitations: language barrier (Khmer-speaking business systems architect utilized) History of Present Illness HPI narrative: Patient is a 33-year-old female who presents emergency department for evaluation of right-sided abdominal pain with onset 2 days ago. Intermittent in nature with varying intensity. At its maximum it is described as a bother, 3/10. At times radiates into the right back. She does report ongoing history of constipation but had bowel movement earlier this morning without issue. Denies fevers, chills, nausea, vomiting, diarrhea, hematochezia, melena, abnormal vaginal discharge. She does admit to slight urinary frequency and is currently menstruating, reports history of tubal ligation, unlikely to have Related Data Previous Rx's ?Medication ?Instructions ?Recorded lidocaine 5 % topical cream 1 appl topical TID PRN pain #15 03/27/23 grams prednisone 20 mg tablet 40 mg (2 x 20 mg) PO DAILY #10 tabs 03/27/23 valacyclovir 1 gram tablet 1,000 mg PO TID #21 tabs 03/27/23 (Valtrex) acetaminophen 500 mg tablet 1,000 mg (2 x 500 mg) PO Q6H PRN 08/17/23 (Tylenol Extra Strength) fever or pain #20 tabs doxycycline hyclate 100 mg tablet 100 mg PO Q12H 14 days #28 tabs 08/17/23 ibuprofen 400 mg tablet 400 mg PO TID PRN fever or pain 08/17/23 #30 tabs metronidazole 500 mg tablet 500 mg PO BID 14 days #28 tabs 08/17/23 cyclobenzaprine 10 mg tablet 10 mg PO TID PRN pain, muscle 12/15/23 spasm #15 tabs polyethylene glycol 3350 17 17 g PO DAILY #119 grams 02/01/24 gram/dose oral powder (Miralax) Allergies Allergy/AdvReac Type Severity Reaction Status Date / Time aspirin [ASA] AdvReac Rash Verified 02/01/24 11:48 Review of Systems Review of Systems Yes all other systems are reviewed and are negative PMFSH Past Medical History Attestation statement: The following information was validated with the patient. Source: old records reviewed Social History Social History Alcohol intake: current Alcohol intake frequency: holidays/special occasions only Advance Directives: No Advance Directives Information Provided: No Physical Exam ED Vital Signs: Vital Signs - 24 hr 02/01/24 11:46 02/01/24 20:07 Temperature 97.7 F Pulse Rate 84 58 Respiratory Rate 16 Blood Pressure 124/69 128/73 Pulse Oximetry 100 100 Oxygen Delivery Method Room Air Room Air BMI result Body Mass Index 32.4 Appearance: Alert.?Oriented to person, place and time. No acute distress.?Normal affect. Eyes: Pupils equal, round and reactive to light.? ENT: Pharynx normal.?? Neck: Normal inspection.? Neck supple.?? CVS: Heart sounds normal. Normal heart rate and rhythm.? Pulses normal.?? Respiratory: No respiratory distress.? Lung sounds clear to auscultation bilaterally?? Abdomen: Soft and non-tender. No rebound tenderness. No tenderness at McBurney's point. No rigidity. No guarding. No CVA tenderness. Normoactive bowel sounds. No pulsatile mass.?? Skin: Skin warm and dry.? Normal skin color.? Extremities: No lower extremity edema.? Neuro: Moves all extremities spontaneously. Sensation intact bilaterally. Ambulates with normal steady gait. Course Course Course Narrative: RME:?33 yo female here for eval of waxing and waning right sided abd pain w/ radiation to right back that began yesterday morning, now constant since last night. Endorses increased urinary freq. Admits to hx of renal stone years ago while in [place] which she was able to pass. Taking tylenol at home- last dose was last night. Denies hematuria, dysuria, N/V, diarrhea. labs, UA ordered. Full HPI, ROS and PE to be performed by the primary ED provider. Medical Decision Making Medical Decision Making [facility] Narrative: Patient is a 33-year-old female presenting to emergency department for evaluation of right-sided abdominal pain as per HPI. Abdominal examination is benign, no tenderness, no rigidity, no guarding, have a low suspicion for acute abdomen; less likely to be bowel obstruction, appendicitis, ovarian torsion, TOA, ectopic , hydronephrosis, obstructive calculi. Suspect urinary tract infection/early pyelo vs constipation vs muscular strain. CBC is without leukocytosis or anemia. CMP is unremarkable, lipase within normal range, history of cholecystectomy in 2014. HCG negative. Urinalysis without evidence of infection. KUB obtained to evaluate bowel pattern/constipation revealing moderate stool within the right hemicolon, discussed outpatient management with MiraLax and follow-up with PCP. Declined pain medication at this time. Stable for discharge home Differential Diagnosis Differential Diagnoses: The differential diagnosis associated with the presentation includes (See narrative above) Admission/Observation Consideration of admission/observation: Escalation of care including admission/observation considered (See narrative above) Lab Data MDM Lab Attestation statement: I reviewed the patient's lab results. (See narrative above) 02/01/24 12:22 02/01/24 12:22 Labs: Lab Results 02/01/24 02/01/24 Range/Units 12:22 19:47 WBC 6.2 (4.8-10.8) X10*3/uL RBC 3.80 L (4.20-5.50) X10*6/uL Hgb 12.0 (12.0-16.0) g/dl Hct 35.6 L (37.0-47.0) % MCV 93.7 (80.0-98.0) fL MCH 31.6 (27.0-33.0) pg MCHC 33.7 (31.0-35.0) g/dl RDW 13.7 (11.0-16.0) % Plt Count 343 (160-400) X10*3/uL MPV 9.4 (9.4-12.3) fL Immature Gran % (Auto) 0.2 (0.0-0.4) % Neut % (Auto) 41.8 L (45-73) % Lymph % (Auto) 50.2 H (20-40) % [place] % (Auto) 5.7 (2-11) % Eos % (Auto) 1.5 (0-4) % Baso % (Auto) 0.6 (0-2) % Lymph # (Auto) 3.1 (1.2-4.9) X10*3/uL [place] # (Auto) 0.4 (0.1-1.2) X10*3/uL Eos # (Auto) 0.1 (0.0-0.4) X10*3/uL Baso # (Auto) 0.0 (0.0-0.2) X10*3/uL Abs Immat Gran (auto) 0.01 (0.00-0.03) X10*3/uL Absolute Neuts (auto) 2.6 (2.0-8.3) x10*3/uL Absolute Nucleated RBC 0.000 (0.0-0.012) X10*3/uL Nucleated RBC % (auto) 0.0 (0.0-0.2) /100WBC Sodium 141 (135-145) mmol/L Potassium 3.7 (3.3-5.1) mmol/L Chloride 110 H (96-108) mmol/L Carbon Dioxide 26 (22-29) mmol/L Anion Gap 9 L (12-20) BUN 9 (9-16) mg/dL Creatinine 0.65 (0.5-1.4) mg/dL Estim Creat Clear Calc 132.6 Estimated GFR > 60 Random Glucose 80 (60-115) mg/dL Calcium 9.6 (8.4-10.2) mg/dL Magnesium 2.0 (1.6-2.6) mg/dL Total Bilirubin 0.8 (0.0-1.0) mg/dL AST 13 (5-31) U/L ALT 13 (0-31) U/L Alkaline Phosphatase 50 (39-117) U/L Total Protein 7.0 (6.5-8.0) g/dL Albumin 4.1 (3.5-5.0) g/dL Lipase 10 (8-78) U/L Beta HCG, Quant < 2 mIU/mL Urine Color Yellow Urine Appearance Clear Urine pH 5.5 (5.0-9.0) Ur Specific [place] 1.010 (1.005-1.025) Urine Protein Negative (Neg-Trace) mg/dL Urine Glucose (UA) Negative (Negative) mg/dL Urine Ketones Negative (Negative) mg/dL Urine Blood Negative (Negative) Urine Nitrite Negative (Negative) Ur Leukocyte Esterase Negative (Negative) Independent Interpretation I performed an independent interpretation of an: Plain X-Ray (Stool within the right colon) Radiology Impression Discussion of test interpretation with radiology: I have reviewed the radiologist's reading. Radiologist Impression: XR/XR KUB IMPRESSION: Nonobstructive bowel gas pattern with a moderate volume of stool within the right hemicolon. External Record Review External record reviewed: Outpatient record Discharge Plan Discharge Clinical Impression: Constipation Patient Disposition: Home, Self-Care Instructions: Constipation (ED) Additional Instructions: Imaging today shows constipation within the right side of the colon likely resulting in the pain that you are experiencing. A prescription for MiraLax was sent to your pharmacy, take this daily to improve your bowel movements. Stopped taking the MiraLax if you develop persistent diarrhea. Follow-up with your primary care provider within the next week. You may return back to emergency department any new or worsening symptoms or concerns. Prescriptions: New polyethylene glycol 3350 [Miralax] 17 gram/dose powder 17 g PO DAILY Qty: 119 0RF No Action metronidazole 500 mg tablet 500 mg PO BID 14 Days Qty: 28 0RF acetaminophen [Tylenol Extra Strength] 500 mg tablet 1,000 mg PO Q6H PRN (Reason: fever or pain) Qty: 20 0RF ibuprofen 400 mg tablet 400 mg PO TID PRN (Reason: fever or pain) Qty: 30 0RF doxycycline hyclate 100 mg tablet 100 mg PO Q12H 14 Days Qty: 28 0RF cyclobenzaprine 10 mg tablet 10 mg PO TID PRN (Reason: pain, muscle spasm) Qty: 15 0RF valacyclovir [Valtrex] 1 gram tablet 1,000 mg PO TID Qty: 21 0RF lidocaine 5 % cream 1 appl topical TID PRN (Reason: pain) Qty: 15 0RF prednisone 20 mg tablet 40 mg PO DAILY Qty: 10 0RF Referrals: Physician,Unknown J [Primary Care Provider] - Print Language: Khmer
[2024-02-01 12:24] LABS: MANUAL DIFF FLAG NO
[2024-02-01 12:34] LABS: Basophils Percent Auto 0.6 % (0-2); Eosinophils Absolute Auto 0.1 X10*3/uL (0.0-0.4); Eosinophils Percent Auto 1.5 % (0-4); Hematocrit 35.6 % (37.0-47.0); Imm Gran Abs Auto 0.01 X10*3/uL (0.00-0.03); Imm Gran Pct Auto 0.2 % (0.0-0.4); Lymphocytes Absolute Auto 3.1 X10*3/uL (1.2-4.9); Lymphocytes Percent Auto 50.2 % (20-40); Mean Corpuscular HGB Conc 33.7 g/dl (31.0-35.0); Mean Corpuscular Hemoglobin 31.6 pg (27.0-33.0); Mean Corpuscular Volume 93.7 fL (80.0-98.0); Mean Platelet Volume 9.4 fL (9.4-12.3); Monocytes Absolute Auto 0.4 X10*3/uL (0.1-1.2); Monocytes Percent Auto 5.7 % (2-11); Neutrophils Absolute Auto 2.6 x10*3/uL (2.0-8.3); Neutrophils Percent Auto 41.8 % (45-73); Platelet Count 343 X10*3/uL (160-400); Red Cell Distribution Width 13.7 % (11.0-16.0); White Blood Count 6.2 X10*3/uL (4.8-10.8)
[2024-02-01 13:01] LABS: Alanine Aminotransferase 13 U/L (0-31); Albumin Level 4.1 g/dL (3.5-5.0); Alkaline Phosphatase 50 U/L (39-117); Anion Gap 9 (12-20); Aspartate Amino Transferase 13 U/L (5-31); Bilirubin Total 0.8 mg/dL (0.0-1.0); Blood Urea Nitrogen 9 mg/dL (9-16); Calcium 9.6 mg/dL (8.4-10.2); Carbon Dioxide 26 mmol/L (22-29); Chloride 110 mmol/L (96-108); Creatinine Clr Calc Pharmacy 132.6; Estimated Glomerular Filt Rate > 60; Glucose Random 80 mg/dL (60-115); Lipase 10 U/L (8-78); Potassium 3.7 mmol/L (3.3-5.1); Sodium 141 mmol/L (135-145)
[2024-02-01 20:01] LABS: Appearance Urine Clear; Color Urine Yellow; Glucose Urine UA Negative (Negative); Leukocyte Esterase Urine Negative (Negative); Nitrite Urine Negative (Negative); PH 5.5 (5.0-9.0); Urine Blood Negative (Negative); Urine Ketones Negative (Negative); Urine Protein Negative (Neg-Trace)
[2024-02-01 20:07] VITALS: BP 128/73; PULSE 58; O2SAT 100
[2024-02-01 20:08] LABS: HCG Quantitative < 2 mIU/mL
[2024-02-01 23:08] VITALS: BP 127/56; PULSE 50; RESP 17; TEMP 36.8; O2SAT 99
[2024-02-02 02:30] VITALS: BP 127/56; PULSE 50; RESP 17; TEMP 36.8; O2SAT 99
== END 2024-02-02 00:30 | disposition home or self-care (01) ==
PROVIDERS: Nurse Practitioner Family; Physician Assistant Medical; Emergency Provider Emergency Medicine
DX: K59.00 Constipation, unspecified (principal); R10.30 Lower abdominal pain, unspecified; Z79.899 Other long term (current) drug therapy
CPT/HCPCS: 36415; 74018; 80053; 81003; 83690; 83735; 84702; 85025; 99283